=== PATIENT | female | born 1960 | race Caucasian/White ===

== ENCOUNTER 2018-05-24 21:05 | Emergency (ER) | payer OTHER, SELFPAY ==
[2018-05-24 22:07] LABS: #Basophils 0.1 thou/uL (0.0-0.2); #Eosinphils 0.1 thou/uL (0.0-0.7); #Lymphocytes 1.9 thou/uL (1.20-3.40); #Monocytes 0.6 thou/uL (0.11-0.59); #Neutrophils 4.4 thou/uL (1.40-6.50); %Basophils 0.8 % (0.0-1.0); %Lymphocytes 27.2 % (21.0-51.0); %Neutrophils 61.9 % (42.0-75.0); Hemoglobin 14.8 g/dL (12.0-16.0); Mean Corpuscular HGB CONC 34.5 g/dL (32.0-36.0); Mean Corpuscular Hemoglobin 33.9 pg (27.0-31.0); Mean Corpuscular Volume 98.3 fL (78.0-98.0); Mean Platelet Volume 7.8 fL (7.4-10.4); Platelet Count 243 thou/uL (130-400); RBC Distribution Width 11.5 % (11.5-14.5); Red Blood Cell (RBC) Count 4.38 mill/uL (4.20-5.40); White Blood Cell (WBC) Count 7.1 thou/uL (4.8-10.8)
--- NOTE | 2018-05-24 22:26 | RAD ---
Chest one view HISTORY: Chest pain. FINDINGS: No comparison. Cardiac silhouette and pulmonary vasculature are unremarkable. Mediastinum i s midline. Mild linear bibasilar atelectasis. No lobar consolidation or evidence of pneumothorax. IMPRESSION: No active cardiopulmonary abnormalities are demonstrated.
[2018-05-24 22:33] LABS: ALT (SGPT) 28 U/L (8-55); AST (SGOT) 23 U/L (5-34); Albumin 4.5 g/dL (3.5-5.0); Alkaline Phosphatase 99 U/L (40-150); Anion Gap 13 mmol/L (10-20); BUN (Urea Nitrogen) 16 mg/dL (9.8-20.1); Bilirubin, Total 0.5 mg/dL (0.2-1.2); CK (CPK) 78 U/L (29-168); Calc. Creatinine Clearance 0 mL/min (70-130); Calcium 9.9 mg/dL (7.8-10.44); Carbon Dioxide 27 mmol/L (22-29); Chloride 104 mmol/L (98-107); Estimated GFR-MDRD 68; Globulin 2.6 g/dL (2.4-3.5); Glucose 88 mg/dL (70-105); Potassium 3.8 mmol/L (3.5-5.1); Protein, Total 7.1 g/dL (6.0-8.3); Sodium 140 mmol/L (136-145)
[2018-05-24] MEDS ORDERED: Aspirin Chewable 81 MG TAB ONE (23:39)
[2018-05-24] MEDS ORDERED: Nitroglycerin 2% Ointment 1 INCH/1 GM Packet ONE (23:39)
== END 2018-05-25 02:21 | disposition home or self-care (01) ==
LOC: ERS 21:05
DX: R07.89 Other chest pain (principal); M79.602 Pain in left arm
CPT/HCPCS: 36415; 71045; 80053; 82550; 83880; 84484; 85025; 93005

== ENCOUNTER 2022-07-30 14:46 | Emergency (ER) | payer OTHER, SELFPAY ==
[~2022-07-30 14:46] MED LIST: Iopamidol-370 76% 500 ML MDV (1 ML CHARGE) ONE
[2022-07-30 16:03] LABS: #Basophils 0.1 thou/uL (0.0-0.2); #Eosinphils 0.1 thou/uL (0.0-0.7); #Monocytes 0.5 thou/uL (0.11-0.59); #Neutrophils 4.3 thou/uL (1.40-6.50); %Basophils 0.9 % (0.0-1.0); %Eosinophils 1.6 % (0.0-10.0); %Lymphocytes 27.6 % (21.0-51.0); %Neutrophils 62.5 % (42.0-75.0); Hemoglobin 13.7 g/dL (12.0-16.0); Mean Corpuscular Hemoglobin 32.6 pg (27.0-31.0); Mean Corpuscular Volume 93.1 fl (78.0-98.0); Mean Platelet Volume 10.7 fL (7.4-10.4); Platelet Count 224 10x3/uL (130-400); RBC Distribution Width 11.6 % (11.5-14.5); White Blood Cell (WBC) Count 6.9 10x3/uL (4.8-10.8)
[2022-07-30] MEDS ORDERED: Ketorolac Tromethamine 30 MG/ML VIAL ONE (16:12)
[2022-07-30] MEDS ORDERED: Diazepam 5 MG TAB ONE (16:12)
[2022-07-30] MEDS ORDERED: Acetaminophen 500 MG TAB ONE (16:12)
[2022-07-30 16:26] LABS: ALT (SGPT) 20 U/L (8-55); AST (SGOT) 19 U/L (5-34); Albumin 4.2 g/dL (3.5-5.0); Alkaline Phosphatase 84 U/L (40-110); Anion Gap 15 mmol/L (10-20); BUN (Urea Nitrogen) 14 mg/dL (9.8-20.1); Bilirubin, Total 0.4 mg/dL (0.2-1.2); Calc. Creatinine Clearance 0 mL/min (70-130); Calcium 9.4 mg/dL (7.8-10.44); Carbon Dioxide 22 mmol/L (22-29); Chloride 108 mmol/L (98-107); Estimated GFR 61; Globulin 2.4 g/dL (2.4-3.5); Glucose 102 mg/dL (70-105); Magnesium 2.1 mg/dL (1.6-2.6); Protein, Total 6.6 g/dL (6.0-8.3); Sodium 141 mmol/L (136-145)
[2022-07-30 16:48] LABS: CKMB 0.4 ng/mL (0-6.6)
[2022-07-30] MEDS ORDERED: Cyclobenzaprine 10 MG TAB ONE (18:51)
[2022-07-30 19:26] LABS: Troponin I Less than 0.010 ng/mL (< 0.028)
== END 2022-07-30 19:37 | disposition home or self-care (01) ==
LOC: ERS 14:46
DX: M54.9 Dorsalgia, unspecified (principal); R25.2 Cramp and spasm
CPT/HCPCS: 36415; 70496; 70498; 71045; 80053; 82553; 83735; 83880; 84484; 85025; 93005; 96374; J1885; Q9967

== ENCOUNTER 2023-12-04 15:11 | Observation (INO) | payer OTHER ==
[2023-12-04 16:26] VITALS: BMI 29.6
[2023-12-04] MEDS ORDERED: traMADol HCl 50 MG TAB PO PRN (17:27)
[2023-12-04] MEDS ORDERED: Ondansetron PF 4 MG/2 ML Vial IVP PRN (17:27)
[2023-12-04] MEDS ORDERED: Ketorolac Tromethamine 30 MG (1 mL) VIAL IVP PRN (17:27)
[2023-12-04] MEDS ORDERED: Bisacodyl 5 MG TAB PO PRN (17:27)
[2023-12-04] MEDS ORDERED: Ondansetron ODT 4 MG TAB PO PRN (17:27)
[2023-12-04 18:17] LABS: Troponin I 0.011 ng/mL (< 0.028)
[2023-12-04] MEDS: Famotidine 20 MG TAB PO SCH (20:09)
[2023-12-04] MEDS: Acetaminophen 325 MG TAB PO PRN (20:09)
[2023-12-04 20:55] LABS: Troponin I Less than 0.010 ng/mL (< 0.028)
[2023-12-04] MEDS: Famotidine/PF 20 mg/2ml Vial SLOW IVP SCH (21:21)
[2023-12-04] MEDS: Nitroglycerin 2% Ointment 1 INCH/1 GM Packet TOP SCH (23:04)
[2023-12-05 04:35] LABS: #Basophils 0.04 10x3/uL (0.0-0.2); %Basophils 0.7 % (0.0-1.0); %Eosinophils 3.2 % (0.0-10.0); %Lymphocytes 35.9 % (21.0-51.0); %Monocytes 8.2 % (0.0-10.0); %Neutrophils 51.8 % (42.0-75.0); Hematocrit 39.4 % (36.0-47.0); Hemoglobin 13.2 g/dL (12.0-16.0); Mean Corpuscular HGB CONC 33.5 g/dL (32.0-36.0); Mean Corpuscular Hemoglobin 31.9 pg (27.0-31.0); Mean Corpuscular Volume 95.2 fL (78.0-98.0); Mean Platelet Volume 10.4 fL (7.4-10.4); Platelet Count 206 10x3/uL (130-400); RBC Distribution Width 11.4 % (11.5-14.5); Red Blood Cell (RBC) Count 4.14 mill/uL (4.20-5.40)
[2023-12-05 05:26] LABS: ALT (SGPT) 23 U/L (8-55); AST (SGOT) 18 U/L (5-34); Albumin 3.5 g/dL (3.4-4.8); Alkaline Phosphatase 71 U/L (40-110); Anion Gap 13 mmol/L (10-20); BUN (Urea Nitrogen) 13 mg/dL (9.8-20.1); Bilirubin, Total 0.5 mg/dL (0.2-1.2); Calc. Creatinine Clearance 85 mL/min (70-130); Calcium 8.6 mg/dL (7.8-10.44); Carbon Dioxide 25 mmol/L (23-31); Chloride 107 mmol/L (98-107); Estimated GFR 69; Globulin 2.3 g/dL (2.4-3.5); Glucose 94 mg/dL (80-115); Potassium 3.6 mmol/L (3.5-5.1); Protein, Total 5.8 g/dL (5.8-8.1); Sodium 141 mmol/L (136-145)
[2023-12-05] MEDS: Sodium Chloride 0.9% 1,000 ML IV SCH ×2 (07:44→09:14)
[2023-12-05] MEDS: Aspirin 81 mg Enteric Coated Tablet PO SCH (07:45)
[2023-12-05] MEDS ORDERED: CATH FS PRN (07:45)
[2023-12-05] MEDS ORDERED: Verapamil 5 MG/2 ML VIAL ONE (07:47)
[2023-12-05] MEDS ORDERED: Heparin 10,000 UNITS/ 10 ML VIAL ONE (07:47)
[2023-12-05] MEDS ORDERED: Nitroglycerin 50 MG/250 ML BOT 250 ML ONE (07:48)
[2023-12-05 07:49] VITALS: BP 133/77; TEMP 97.5
[2023-12-05] MEDS ORDERED: Midazolam HCl 2 mg/2 ml Vial ONE (08:19)
[2023-12-05] MEDS ORDERED: fentaNYL 50 mcg/mL 1 mL Vial ONE (08:19)
[2023-12-05] MEDS ORDERED: Acetaminophen/Codeine 30-300mg Tablet PO PRN (08:46)
[2023-12-05] MEDS ORDERED: Sodium Chloride 0.9% 200 ML IV PRN (08:46)
[2023-12-05] MEDS ORDERED: Nitroglycerin 0.4 MG TAB (25 Tab Bottle) SL PRN (08:46)
[2023-12-05] MEDS ORDERED: Enoxaparin 40 MG (0.4 mL) SYRINGE SC SCH (09:00)
[2023-12-05] MEDS ORDERED: Aspirin Chewable 81 MG TAB PO SCH (09:00)
[2023-12-05] MEDS: Acetaminophen/Codeine 30-300mg Tablet PO PRN (09:23)
[2023-12-05] MEDS ORDERED: Atorvastatin Calcium 40 MG TAB PO SCH (21:00)
[2023-12-06] MEDS ORDERED: Aspirin 81 mg Enteric Coated Tablet PO SCH (09:00)
[2023-12-06] MEDS ORDERED: FLU (Fluarix Triv) TS24-25(6MOS UP)/PF 45 MCG/0.5 ML Syringe IM ONE (09:00)
== END 2023-12-05 15:43 | disposition home or self-care (01) ==
LOC: OBS 15:12
PROVIDERS: ADMIT Internal Medicine; ATTEND Hospitalist
PROC: 4A023N7 Measurement of Cardiac Sampling and Pressure, Left Heart, Percutaneous Approach (ICD-10-PCS; principal; 2023-12-05)
PROC: B205YZZ Plain Radiography of Left Heart using Other Contrast (ICD-10-PCS; 2023-12-05)
DX: R07.89 Other chest pain (principal); I25.110 Atherosclerotic heart disease of native coronary artery with unstable angina pectoris; I21.4 Non-ST elevation (NSTEMI) myocardial infarction; I10 Essential (primary) hypertension; Z85.040 Personal history of malignant carcinoid tumor of rectum; Z90.710 Acquired absence of both cervix and uterus; Z79.82 Long term (current) use of aspirin; Z79.899 Other long term (current) drug therapy
CPT/HCPCS: 36415; 36416; 80053; 85025; 93458; 99152; C1769; C1894; J1644; J2250; J3010; J3490

== ENCOUNTER 2024-10-20 15:22 | Outpatient (CLI) | payer OTHER | END 2024-10-20 15:23 | disposition home or self-care (01) | LOC: RAD 15:22 | PROVIDERS: ATTEND Physician Assistant | DX: J18.9 Pneumonia, unspecified organism (principal) | CPT/HCPCS: 71046 ==